=== PATIENT | female | born 1960 | race African-American/Black ===

== ENCOUNTER → 2016-08-19 | Outpatient (CLI) | payer OTHER ==
[~2016-08-19] MED LIST: AMOXICILLIN/CLA1 TA1 PO; B-12 500 MCG PO; OMEGA-31 SGL PO; TYLENOL W/COD1 UDTAB PO
== END ==
LOC: MC.RAD 14:00
DX: Z12.31 Encounter for screening mammogram for malignant neoplasm of breast (principal)

== ENCOUNTER 2017-06-24 10:49 | Emergency (ER) | payer BC, OTHER ==
[~2017-06-24] VITALS: Ht 167.6 cm; Wt 77.7 kg
[2017-06-24 10:54] VITALS: TEMP 98
[2017-06-24 11:53] LABS: BASO % 0.5 % (0.0-2.0); EOS # 0.1 (0.0-0.7); GRAN # 3.3 (1.4-6.5); GRAN % 52.2 % (42.2-75.2); HEMATOCRIT 39.5 % (37.0-47.0); HEMOGLOBIN 12.7 g/dl (12.5-16.0); LYMPH # 2.6 (1.2-3.4); LYMPH % 41.2 % (20.0-51.0); MEAN CELL VOLUME 90 fl (80.0-100.0); MEAN CORPUSCULAR HEMOGLOBIN 29 pg (27.0-31.0); MEAN CORPUSCULAR HGB CONC 32 g/dl (33.0-37.0); MEAN PLATELET VOLUME 11.6 fl (7.4-10.4); MONO # 0.3 (0.1-0.6); MONO % 4.8 % (1.7-9.3); PLATELET COUNT 226 K/mm3 (130-400); RED BLOOD COUNT 4.41 M/mm3 (4.10-5.30); REDCELL DISTRIBUTION WIDTH-CV 13.9 % (11.5-14.5)
[2017-06-24 12:08] LABS: ALANINE AMINOTRANSFERASE 31 U/L (9-52); ALBUMIN 4.2 gm/dL (3.5-5.0); ALKALINE PHOSPHATASE 116 U/L (50-136); ANION GAP 8 mmol/L (7-16); AST,SGOT 22 U/L (15-37); BILIRUBIN,TOTAL 0.3 mg/dL (0.0-1.0); BLOOD UREA NITROGEN 14 mg/dL (7-17); CALCIUM 9.2 mg/dL (8.4-10.2); CARBON DIOXIDE 26 mmol/L (22-30); CHLORIDE 108 mmol/L (98-107); CREATININE, serum 0.79 mg/dL (0.52-1.25); GLUCOSE 116 mg/dL (74-106); POTASSIUM 4.1 mmol/L (3.4-5.0); PROTHROMBIN TIME 11.4 SECONDS (9.7-12.8); SODIUM 142 mmol/L (137-145); TOTAL PROTEIN 7.5 gm/dL (6.4-8.2)
[2017-06-24 12:11] LABS: PARTIAL THROMBOPLASTIN TIME 26.6 SECONDS (26.0-37.0)
[2017-06-24 12:12] LABS: D-DIMER < 200.00 ng/mLDDu (200-230)
[2017-06-24 12:21] LABS: TROPONIN-I < 0.012 ng/mL (0.000-0.034)
[2017-06-24 15:08] VITALS: BP 136/84; PULSE 71
== END 2017-06-24 15:08 | disposition home or self-care (01) ==
LOC: COL.ER 10:49
PROVIDERS: Emergency Medicine
DX: R07.9 Chest pain, unspecified (principal)

== ENCOUNTER 2017-10-10 23:08 | Emergency (ER) | payer BC ==
[~2017-10-10] VITALS: Ht 167.6 cm; Wt 77.3 kg
[2017-10-10 23:11] VITALS: BP 134/70; TEMP 98.4
[2017-10-10 23:27] LABS: COLLECTION METHOD CLEAN CATCH
[2017-10-10 23:29] LABS: BASO % 0.3 % (0.0-2.0); EOS # 0.1 (0.0-0.7); EOS % 0.8 % (0-4.0); GRAN # 6.1 (1.4-6.5); GRAN % 63.6 % (42.2-75.2); HEMATOCRIT 37.4 % (37.0-47.0); LYMPH # 2.8 (1.2-3.4); LYMPH % 29.3 % (20.0-51.0); MEAN CELL VOLUME 89 fl (80.0-100.0); MEAN CORPUSCULAR HEMOGLOBIN 28 pg (27.0-31.0); MEAN CORPUSCULAR HGB CONC 32 g/dl (33.0-37.0); MEAN PLATELET VOLUME 10.1 fl (7.4-10.4); MONO # 0.5 (0.1-0.6); MONO % 5.5 % (1.7-9.3); PLATELET COUNT 276 K/mm3 (130-400); RED BLOOD COUNT 4.22 M/mm3 (4.10-5.30); REDCELL DISTRIBUTION WIDTH-CV 13.6 % (11.5-14.5)
[2017-10-10 23:32] LABS: MUCOUS Present /lpf; PH 5 (5-8); SQUAMOUS EPITHELIAL 0-2 /hpf; URINE APPEARANCE Clear; URINE BACTERIA Rare /hpf; URINE BILIRUBIN Negative (NEGATIVE); URINE BLOOD 1+ (NEGATIVE); URINE COLOR Yellow; URINE GLUCOSE Negative (NEGATIVE); URINE KETONE Negative (NEGATIVE); URINE LEUKOCYTE ESTERASE Negative (NEGATIVE); URINE NITRATE Negative (NEGATIVE); URINE PROTEIN(semi-quant) Negative (NEGATIVE); URINE RBC 0-2 /hpf
[2017-10-10 23:40] LABS: ALANINE AMINOTRANSFERASE 46 U/L (9-52); ALBUMIN 4.1 gm/dL (3.5-5.0); ALKALINE PHOSPHATASE 120 U/L (50-136); ANION GAP 12 mmol/L (7-16); AST,SGOT 31 U/L (15-37); BILIRUBIN,TOTAL 0.6 mg/dL (0.0-1.0); BLOOD UREA NITROGEN 17 mg/dL (7-17); CALCIUM 9.3 mg/dL (8.4-10.2); CARBON DIOXIDE 27 mmol/L (22-30); CHLORIDE 104 mmol/L (98-107); CREATININE, serum 0.86 mg/dL (0.52-1.25); GLUCOSE 117 mg/dL (74-106); LIPASE 18 U/L (23-300); POTASSIUM 3.7 mmol/L (3.4-5.0); SODIUM 144 mmol/L (137-145); TOTAL PROTEIN 8.9 gm/dL (6.4-8.2)
[2017-10-10 23:49] LABS: TROPONIN-I < 0.012 ng/mL (0.000-0.034)
[2017-10-11] MEDS ORDERED: FLAGYL500 MG PO (01:02)
[2017-10-11] MEDS ORDERED: CIPRO 500MG TA500 MG PO (01:02)
[2017-10-11] MEDS ORDERED: NORCO 325 MG-51 TAB PO (01:02)
[2017-10-11] MEDS ORDERED: PHENERGAN 25 TA25 MG PO (01:02)
[2017-10-11 01:15] VITALS: PULSE 84
== END 2017-10-11 01:17 | disposition home or self-care (01) ==
LOC: COL.ER 23:08
PROVIDERS: Emergency Medicine
DX: K57.92 Diverticulitis of intestine, part unspecified, without perforation or abscess without bleeding (principal); Z98.51 Tubal ligation status
CPT/HCPCS: J2270; J2405; J7030; Q9967